=== PATIENT | female | born 1990 | race Caucasian/White ===

== ENCOUNTER 2017-09-25 04:52 | Observation (INO) | payer MEDICAID, OTHER ==
[~2017-09-25] VITALS: Ht 157.5 cm; Wt 99.8 kg
[2017-09-25] MEDS ORDERED: DEXT 5%/LR + PITOCIN 20UNITS/L 1,000 ML IV SCH (05:13)
[2017-09-25] MEDS ORDERED: MISOPROSTOL 100MCG TABLET VG SCH (05:15)
[2017-09-25] MEDS ORDERED: BUTORPHANOL TARTRATE 2 MG/ML VIAL IV PRN (05:15)
[2017-09-25] MEDS ORDERED: CARBOPROST TROMETHAMINE 250 MCG/ML AMPUL IM PRN (05:15)
[2017-09-25] MEDS ORDERED: LIDOCAINE HCL 1% 20ML VIAL (Pyxis) INJ INFIL SCH (05:15)
[2017-09-25] MEDS ORDERED: METHYLERGONOVINE MALEATE 0.2 MG/ML IM PRN (05:15)
[2017-09-25] MEDS: LACTATED RINGERS 1,000 ML IV SCH ×2 (05:35→08:12)
[2017-09-25] MEDS ORDERED: PENICILLIN G POTASSIUM 5 MMU in DEXT 5% WATER 100 ML IV SCH (05:45)
[2017-09-25 06:04] LABS: INR 0.9; PARTIAL THROMBOPLASTIN TIME 27.5 sec (23.4-31.0); PROTHROMBIN TIME 9.5 sec (9.4-11.6)
[2017-09-25 06:14] LABS: BASOPHILS % 0.2 % (0.0-2.0); EOSINOPHILS % 0.3 % (0.0-5.0); HEMATOCRIT. 35.3 % (36.0-48.0); HEMOGLOBIN. 12.3 g/dL (12.0-16.0); LYMPHOCYTES % 24.6 % (20.0-50.0); MEAN CORPUSCULAR HEMOGLOBIN 30.4 pg (28.0-32.0); MEAN CORPUSCULAR VOLUME 87.4 fL (81.0-99.0); MEAN PLATELET VOLUME 9.3 fl (7.4-10.4); MONOCYTES % 6.1 % (2.0-8.0); NEUTROPHILS % 68.8 % (40.0-76.0); PLATELET 184 x1000/uL (130-400); RED BLOOD CELL COUNT 4.03 mill/uL (4.2-5.4); RED CELL DISTRIBUTION WIDTH 14.3 % (11.6-14.6)
[2017-09-25 07:16] LABS: CLARITY URINE CLEAR (CLEAR); COLOR URINE YELLOW (YELLOW); KETONES URINE NEGATIVE (NEGATIVE); LEUKOCYTE ESTERASE URINE NEGATIVE (NEGATIVE); NITRITE URINE NEGATIVE (NEGATIVE); OCCULT BLOOD URINE NEGATIVE (NEGATIVE); PROTEIN URINE TRACE (NEGATIVE); SPECIFIC GRAVITY URINE 1.016 (1.005-1.030)
[2017-09-25 08:27] LABS: *AMPHETAMINES SCREEN URINE NEGATIVE (NEGATIVE); *BARBITURATES SCREEN URINE NEGATIVE (NEGATIVE); *BENZODIAZEPINES SCREEN URINE NEGATIVE (NEGATIVE); *COCAINE SCREEN URINE NEGATIVE (NEGATIVE); CANNABINOID URINE SCREEN NEGATIVE (NEGATIVE); METHADONE URINE SCREEN NEGATIVE (NEGATIVE); OPIATES URINE SCREEN NEGATIVE (NEGATIVE); PHENCYCLIDINE URINE SCREEN NEGATIVE (NEGATIVE)
[2017-09-25] MEDS ORDERED: PENICILLIN G POTASSIUM 2.5 MMU in DEXTROSE 5% WATER 50 ML IV SCH (10:00)
[2017-09-25 13:07] LABS: HEPATITIS B SURFACE ANTIGEN NEGATIVE; RUBELLA IGG 178.9 IU/mL (4.99-10)
== END 2017-09-25 13:10 | disposition home or self-care (01) ==
LOC: L&D 04:52
PROVIDERS: ADMIT Obstetrics & Gynecology; ATTEND Obstetrics & Gynecology
DX: O26.893 Other specified pregnancy related conditions, third trimester (principal); R10.9 Unspecified abdominal pain; Z3A.36 36 weeks gestation of pregnancy
CPT/HCPCS: 36415; 76805; 76810; 80305; 81001; 85025; 85610; 85730; 86592; 86703; 86762; 86850; 86900; 86901; 87340; 96360; 96361; 99281; G0378; J2540; J7120; J7060

== ENCOUNTER 2017-09-27 04:59 | Inpatient (IN) | payer OTHER ==
[~2017-09-27] VITALS: Ht 157.5 cm; Wt 102.1 kg
[2017-09-27] MEDS ORDERED: DEXT 5%/LR + PITOCIN 20UNITS/L 1,000 ML IV SCH (05:33)
[2017-09-27] MEDS ORDERED: FERR325T6 PO (05:35)
[2017-09-27] MEDS ORDERED: PNV1TABL76 MT (05:35)
[2017-09-27] MEDS ORDERED: NALOXONE HCL 0.4 MG/ML 1ML VIAL IM PRN (05:45)
[2017-09-27] MEDS ORDERED: CARBOPROST TROMETHAMINE 250 MCG/ML AMPUL IM PRN (05:45)
[2017-09-27] MEDS ORDERED: METHYLERGONOVINE MALEATE 0.2 MG/ML IM PRN (05:45)
[2017-09-27] MEDS: LACTATED RINGERS 1,000 ML IV SCH ×2 (05:49→06:48)
[2017-09-27 05:54] LABS: CLARITY URINE CLEAR (CLEAR); COLOR URINE YELLOW (YELLOW); KETONES URINE NEGATIVE (NEGATIVE); LEUKOCYTE ESTERASE URINE 1+ (NEGATIVE); NITRITE URINE NEGATIVE (NEGATIVE); OCCULT BLOOD URINE NEGATIVE (NEGATIVE); PROTEIN URINE NEGATIVE (NEGATIVE); SPECIFIC GRAVITY URINE 1.015 (1.005-1.030); UROBILINOGEN URINE 0.2 E.U./dL (0.2-1.0)
[2017-09-27 05:57] LABS: BASOPHILS % 0.3 % (0.0-2.0); EOSINOPHILS % 0.6 % (0.0-5.0); HEMATOCRIT. 32.2 % (36.0-48.0); LYMPHOCYTES % 29.1 % (20.0-50.0); MEAN CORPUSCULAR HEMOGLOBIN 29.9 pg (28.0-32.0); MEAN CORPUSCULAR VOLUME 87.9 fL (81.0-99.0); MEAN PLATELET VOLUME 9.3 fl (7.4-10.4); MONOCYTES % 4.3 % (2.0-8.0); NEUTROPHILS % 65.7 % (40.0-76.0); PLATELET 187 x1000/uL (130-400); RED BLOOD CELL COUNT 3.66 mill/uL (4.2-5.4); RED CELL DISTRIBUTION WIDTH 14.1 % (11.6-14.6)
[2017-09-27 06:06] LABS: INR 0.9; PARTIAL THROMBOPLASTIN TIME 26.5 sec (23.4-31.0); PROTHROMBIN TIME 9.6 sec (9.4-11.6)
[2017-09-27 06:13] LABS: *AMPHETAMINES SCREEN URINE NEGATIVE (NEGATIVE); *BARBITURATES SCREEN URINE NEGATIVE (NEGATIVE); *BENZODIAZEPINES SCREEN URINE NEGATIVE (NEGATIVE); *COCAINE SCREEN URINE NEGATIVE (NEGATIVE); CANNABINOID URINE SCREEN NEGATIVE (NEGATIVE); METHADONE URINE SCREEN NEGATIVE (NEGATIVE); OPIATES URINE SCREEN NEGATIVE (NEGATIVE); PHENCYCLIDINE URINE SCREEN NEGATIVE (NEGATIVE)
[2017-09-27] MEDS ORDERED: BUTORPHANOL TARTRATE 2 MG/ML VIAL IV PRN (06:15)
[2017-09-27] MEDS ORDERED: ONDANSETRON HCL 4MG/2ML VIAL IV PRN (06:15)
[2017-09-27] MEDS ORDERED: DIPHENHYDRAMINE 50MG/ML VIAL IV PRN (06:15)
[2017-09-27] MEDS ORDERED: NALOXONE HCL 0.4 MG/ML 1ML VIAL IV PRN (06:15)
[2017-09-27] MEDS ORDERED: PHENYLEPHRINE HCL 10 MG/ML 1ML (IV VIAL) IV ONE (06:21)
[2017-09-27] MEDS ORDERED: OXYTOCIN 10 UNITS/ML 1ML ONE (06:22)
[2017-09-27] MEDS ORDERED: CEFAZOLIN 2000MG PREMIX 50 ML IV ONE (06:22)
[2017-09-27] MEDS ORDERED: MORPHINE SULFATE/PF 1MG/ML 10ML AMP ONE (06:22)
[2017-09-27] MEDS ORDERED: EPHEDRINE SULFATE 50MG/ML VIAL ONE (06:22)
[2017-09-27] MEDS ORDERED: GLYCOPYRROLATE 0.2 MG/ML 2ML VIAL ONE (06:22)
[2017-09-27] MEDS ORDERED: FENTANYL CITRATE/PF 50MCG/ML 2ML VIAL ONE (06:22)
[2017-09-27] MEDS ORDERED: CITRIC ACID/SODIUM CITRATE SOLN 30ML UDC PO NR (06:45)
[2017-09-27] MEDS ORDERED: DIPHENHYDRAMINE 50MG/ML VIAL ONE (09:03)
[2017-09-27 10:45] LABS: RUBELLA IGG 165.3 IU/mL (4.99-10)
[2017-09-27] MEDS: KETOROLAC 30MG/ML VIAL IV PRN ×2 (11:37→19:39)
[2017-09-27 12:50] VITALS: BP 112/72
[2017-09-27 13:30] VITALS: BP 106/56
[2017-09-27 15:17] LABS: HEPATITIS B SURFACE ANTIGEN NEGATIVE
[2017-09-27] MEDS ORDERED: METOCLOPRAMIDE HCL 10MG/2ML VIAL IV NR (15:45)
[2017-09-27 16:00] VITALS: BP 96/51
[2017-09-27 20:00] VITALS: BP 99/47
[2017-09-28] MEDS: KETOROLAC 30MG/ML VIAL IV PRN (05:53)
[2017-09-28] MEDS: LACTATED RINGERS 1,000 ML IV SCH (05:58)
[2017-09-28 06:20] VITALS: BP 108/48
[2017-09-28 08:30] VITALS: BP 111/68
[2017-09-28] MEDS ORDERED: HYDROCODONE/ACETAMINOPHEN 5/325MG TABLET PO PRN ×2 (11:30)
[2017-09-28] MEDS ORDERED: LANOLIN OINT 0.25 GM TUBE TOP PRN (11:30)
[2017-09-28] MEDS ORDERED: IBUPROFEN 400MG TABLET PO PRN (11:30)
[2017-09-28] MEDS ORDERED: ONDANSETRON HCL 4MG/2ML VIAL IV PRN (11:30)
[2017-09-28] MEDS ORDERED: RHO(D) IMMUNE GLOBULIN 300 MCG/SYR IM PRN (11:30)
[2017-09-28] MEDS ORDERED: DEXT 5%/LR + PITOCIN 20UNITS/L 1,000 ML IV SCH (11:45)
[2017-09-28] MEDS: IBUPROFEN 800MG TABLET PO PRN (12:50)
[2017-09-28 16:59] VITALS: BP 113/71
[2017-09-28 20:00] VITALS: BP 127/71
[2017-09-28] MEDS: DOCUSATE SODIUM 100MG CAPSULE PO SCH (20:50)
[2017-09-29 05:51] VITALS: BP 137/84
[2017-09-29 08:15] VITALS: BP 113/71
[2017-09-29] MEDS: PRENATAL VIT/FE FUMARATE/FA TABLET PO SCH (10:09)
[2017-09-29] MEDS: IBUPROFEN 800MG TABLET PO PRN ×2 (10:09→21:38)
[2017-09-29 17:09] VITALS: BP 120/79
[2017-09-29 19:50] VITALS: BP 129/75
[2017-09-29] MEDS: DOCUSATE SODIUM 100MG CAPSULE PO SCH (21:39)
[2017-09-29 23:30] VITALS: BP 121/65
[2017-09-30 05:00] VITALS: BP 125/85
[2017-09-30] MEDS ORDERED: TETANUS, DIPHTHERIA, PERTUSSIS VAC/PF 0.5ML (>7YR OLD) IM ONE (06:00)
[2017-09-30 08:00] VITALS: BP 114/75
[2017-09-30 08:47] LABS: HEMATOCRIT 29.9 % (36.0-48.0); HEMOGLOBIN 10.1 g/dL (12.0-16.0); MEAN CORPUSCULAR HEMOGLOBIN 29.6 pg (28.0-32.0); PLATELET 205 x1000/uL (130-400); RED CELL DISTRIBUTION WIDTH 13.8 % (11.6-14.6)
[2017-09-30] MEDS ORDERED: INFLUENZA VIRUS VACCINE 0.5ML SYR IM ONE (10:00)
[2017-09-30] MEDS: IBUPROFEN 800MG TABLET PO PRN (10:55)
[2017-09-30] MEDS: PRENATAL VIT/FE FUMARATE/FA TABLET PO SCH (10:55)
== END 2017-09-30 11:45 | disposition home or self-care (01) | DRG 540 ==
LOC: L&D 04:59 → OBSVTOIN 04:59 → 7EST PP/OB 13:00
PROVIDERS: ADMIT Obstetrics & Gynecology; ATTEND Obstetrics & Gynecology
PROC: 10D00Z1 Extraction of Products of Conception, Low, Open Approach (ICD-10-PCS; 2017-09-27)
PROC: 0UB70ZZ Excision of Bilateral Fallopian Tubes, Open Approach (ICD-10-PCS; principal; 2017-09-27 13:00)
DX: O30.033 Twin pregnancy, monochorionic/diamniotic, third trimester (principal); Z68.41 Body mass index [BMI] 40.0-44.9, adult; Z37.2 Twins, both liveborn; O99.214 Obesity complicating childbirth; O77.0 Labor and delivery complicated by meconium in amniotic fluid; E66.01 Morbid (severe) obesity due to excess calories; O69.81X0 Labor and delivery complicated by cord around neck, without compression, not applicable or unspecified; Z30.2 Encounter for sterilization; Z3A.38 38 weeks gestation of pregnancy; Z79.899 Other long term (current) drug therapy
CPT/HCPCS: 36415; 80305; 81001; 82962; 85025; 85027; 85610; 85730; 86592; 86703; 86762; 86850; 86900; 86920; 87340; 88302; 88307; 90686; 90715; G0378; J0171; J0690; J1200; J1885; J2274; J2370; J2405; J2590; J2765; J3010; J3490; J7120; A4315